=== PATIENT | female | born 1990 | race Caucasian/White ===

== ENCOUNTER 2017-08-13 09:23 | Emergency (ER) | payer OTHER ==
[~2017-08-13] VITALS: Ht 160 cm; Wt 59.3 kg
[2017-08-13 09:25] VITALS: Ht 160 cm; Wt 59.3 kg
[2017-08-13] MEDS ORDERED: ONDANSETRON (ODT) 4 MG TAB ODT STA (10:32)
[2017-08-13] MEDS ORDERED: ACET-2047 PO (10:41)
[2017-08-13] MEDS ORDERED: ONDA4TAB14 PO (10:41)
[2017-08-13] MEDS ORDERED: ACETAMINOPHEN 325 MG TAB PO ONE (11:00)
--- NOTE | 2017-08-13 11:05 | ERD ---
ER Documentation Chief Complaint Chief Complaint abd pain with vomiting , onset 0400 am HPI 27-year-old female presents to the emergency department complaining of nonbilious nonbloody vomiting and diarrhea since 4:00 this morning. Patient states that she does not have any abdominal pain at this time. She states she had generalized abdominal pain earlier ROS All systems reviewed and are negative except as per history of present illness. Medications Home Meds Active Scripts Acetaminophen* (Acetaminophen*) 650 Mg Tablet, 650 MG PO Q6H Y for PAIN AND OR ELEVATED TEMP, #30 TAB Prov:DONNA RUSSELL PA-C 08/13/17 Ondansetron (Ondansetron Odt) 4 Mg Tab.rapdis, 4 MG PO Q6H Y for NAUSEA AND/OR VOMITING, #10 TAB Prov:DONNA RUSSELL PA-C 08/13/17 PMhx/Soc Hx Alcohol Use: No Hx Substance Use: No Hx Tobacco Use: No Smoking Status: Never smoker Physical Exam Vitals Vital Signs Date Time Temp Pulse Resp B/P Pulse Ox O2 Delivery O2 Flow Rate FiO2 08/13/17 09:25 100.1 121 18 116/78 99 Physical Exam GENERAL: well-developed/well-nourished, in no apparent distress, non-toxic appearing HENT: NC/AT, moist mucous membranes EYES: Conjunctiva normal NECK: Supple, no lymphadenopathy PULM: CTA bilaterally, no rales, rhonchi, or wheezing heard CV: Normal S1S2, RRR, good capillary refill GI: Soft, non-distended, non tender to palpation Normal bowel sounds, no masses or organomegaly felt on exam No gross peritonitis, no bruits Negative Rovsing, negative Pearce, negative McBurney's point, Negative CVAT BACK: No masses EXT: No clubbing, cyanosis, or edema NEURO: Alert and Orientated SKIN: Intact, normal turgor PSYCH: Normal mood and mentation Results 24 hrs Current Medications Medications (Trade) Dose Ordered Sig/Claudia Route PRN Reason Start Time Stop Time Status Last Admin Dose Admin Acetaminophen (Tylenol Tab) 650 mg ONCE ONCE PO 08/13/17 11:00 08/13/17 11:01 08/13/17 10:42 Ondansetron HCl (Zofran Odt) 4 mg ONCE STAT ODT 08/13/17 10:32 12/25/17 10:33 DC 08/13/17 10:43 Procedures/MDM This is a 27-year-old female presenting to emergency department complaining of nausea vomiting since 4:00 this morning which is likely due to viral gastritis or food poisoning. There is no evidence of acute abdominal conditions at this time. Patient is well-appearing and stable to be discharged home with prescription for Zofran and Tylenol. I have given her Tylenol and Zofran in the ED is past the fluid challenge test. Return precautions have been given. She understands and agrees with this plan Departure Diagnosis: Primary Impression: Nausea vomiting and diarrhea Condition: Stable Patient Instructions: Diet, Vomiting Or Diarrhea [6Yr-Adult], Vomiting And Diarrhea, Nonspecific (Adult) Referrals: NO PRIMARY,CARE PHYSICIAN Additional Instructions: FOLLOW UP WITH YOUR PRIMARY CARE PHYSICIAN TOMORROW.Return to this facility if you are not improving as expected. Take all medicines as directed. Return to this facility if you are not improving as expected. DONNA RUSSELL PA-C Aug 13, 2017 11:05
== END 2017-08-13 11:09 | disposition home or self-care (01) ==
LOC: FTE 09:23
DX: R11.2 Nausea with vomiting, unspecified (principal); R19.7 Diarrhea, unspecified
CPT/HCPCS: 99283